=== PATIENT | female | born 1955 | race Caucasian/White ===

== ENCOUNTER → 2017-09-03 | Outpatient (CLI) | payer OTHER ==
[2017-09-04 08:32] LABS: T. vaginalis (DNA Probe) Negative (NEGATIVE)
[2017-09-04 08:33] LABS: Candida species (DNA Probe) Negative (NEGATIVE); G. vaginalis (DNA Probe) Negative (NEGATIVE)
== END ==
LOC: LAB 12:20 → LAB SHORT 12:20
PROVIDERS: Nurse Practitioner Adult Health
DX: N76.0 Acute vaginitis (principal)
CPT/HCPCS: 87480; 87510; 87660

== ENCOUNTER → 2017-09-18 | Outpatient (CLI) | payer OTHER | LOC: LAB SHORT 13:24 → LAB 13:24 | DX: N76.0 Acute vaginitis (principal) | CPT/HCPCS: 87070; 87205 ==

== ENCOUNTER 2017-09-24 15:45 | Day surgery (SDC) | payer OTHER ==
[2017-09-24] MEDS ORDERED: LOSA25 PO (16:39)
== END 2017-09-24 17:26 | disposition home or self-care (01) ==
LOC: ATC 15:45
DX: B99.9 Unspecified infectious disease (principal); Z87.891 Personal history of nicotine dependence
CPT/HCPCS: 96372; J1100

== ENCOUNTER → 2018-05-29 | Outpatient (CLI) | payer OTHER ==
[~2018-05-29] MED LIST: LOSA25 PO
[2018-05-29 17:41] LABS: BASOPHILS ABSOLUTE AUTO 0.03 K/mm3 (0.00-0.23); BASOPHILS PERCENT AUTO 1 % (0-2); EOSINOPHILS ABSOLUTE AUTO 0.02 K/mm3 (0.00-0.68); EOSINOPHILS PERCENT AUTO 0 % (0-6); Hematocrit 42.8 % (33.0-51.0); Hemoglobin 14.4 g/dL (11.5-16.0); IMMATURE GRAN ABSOLUTE AUTO 0.01 K/mm3 (0.00-0.10); IMMATURE GRAN PERCENT AUTO 0 % (0-1); LYMPHOCYTES ABSOLUTE AUTO 1.78 K/mm3 (0.84-5.20); LYMPHOCYTES PERCENT AUTO 32 % (21-46); MONOCYTES PERCENT AUTO 9 % (4-13); Mean Corpuscular HGB 36.5 pg (26.0-34.0); Mean Corpuscular HGB Conc 33.6 g/dL (31.5-36.5); Mean Corpuscular Volume 108 fL (80-100); Mean Platelet Volume 10.2 fL (9.1-12.4); NEUTROPHILS ABSOLUTE AUTO 3.22 K/mm3 (1.96-9.15); NEUTROPHILS PERCENT AUTO 58 % (41-73); Platelet Count 198 K/mm3 (150-400); RDW Coefficient Variation 11.9 % (11.7-14.2); RDW Standard Deviation 47.8 fL (35.1-46.3); Red Blood Cell Count 3.95 M/mm3 (3.80-5.20); White Blood Cell Count 5.56 K/mm3 (4.00-11.30)
[2018-05-29 18:08] LABS: CHOL/HDL RATIO 2.6; Cholesterol 252 mg/dL (50-200); HDL Cholesterol 96 mg/dL (>39); LDL/HDL RATIO 1.4; Low Density Lipoprotein Chol 133 mg/dL (0-110); Triglycerides 117 mg/dL (30-160); Very Low Density Lipoprot Chol 23 mg/dL (6-32)
== END ==
LOC: LAB SHORT 17:18 → LAB 17:18
PROVIDERS: Nurse Practitioner Family
DX: D64.9 Anemia, unspecified (principal)
CPT/HCPCS: 80061; 85025

== ENCOUNTER 2018-09-06 21:21 | Observation (INO) | payer OTHER ==
[~2018-09-06] VITALS: Ht 172.7 cm; Wt 64.6 kg
[~2018-09-06 21:21] MED LIST changes: +Zofran4 MG PO
[2018-09-06] MEDS ORDERED: Zantac150 MG PO (21:32)
[2018-09-06 21:47] LABS: BASOPHILS ABSOLUTE AUTO 0.03 K/mm3 (0.00-0.23); BASOPHILS PERCENT AUTO 0 % (0-2); EOSINOPHILS ABSOLUTE AUTO 0.01 K/mm3 (0.00-0.68); EOSINOPHILS PERCENT AUTO 0 % (0-6); Hematocrit 36.7 % (33.0-51.0); Hemoglobin 12.5 g/dL (11.5-16.0); IMMATURE GRAN ABSOLUTE AUTO 0.02 K/mm3 (0.00-0.10); IMMATURE GRAN PERCENT AUTO 0 % (0-1); LYMPHOCYTES ABSOLUTE AUTO 2.03 K/mm3 (0.84-5.20); LYMPHOCYTES PERCENT AUTO 28 % (21-46); MONOCYTES ABSOLUTE AUTO 0.54 K/mm3 (0.16-1.47); MONOCYTES PERCENT AUTO 8 % (4-13); Mean Corpuscular HGB 36.4 pg (26.0-34.0); Mean Corpuscular HGB Conc 34.1 g/dL (31.5-36.5); Mean Corpuscular Volume 107 fL (80-100); Mean Platelet Volume 10.2 fL (9.1-12.4); NEUTROPHILS ABSOLUTE AUTO 4.56 K/mm3 (1.96-9.15); NEUTROPHILS PERCENT AUTO 64 % (41-73); Platelet Count 152 K/mm3 (150-400); RDW Coefficient Variation 15.1 % (11.7-14.2); RDW Standard Deviation 59.2 fL (35.1-46.3); Red Blood Cell Count 3.43 M/mm3 (3.80-5.20); White Blood Cell Count 7.19 K/mm3 (4.00-11.30)
[2018-09-06 21:59] LABS: Alanine Aminotransfer (ALT/SGP 93 U/L (12-78); Albumin, Blood 3.3 g/dL (3.4-5.0); Alk Phos 297 U/L (50-136); Anion Gap 15 mmol/L (6-16); Aspartate Aminotrans (AST/SGOT 215 U/L (12-37); Bilirubin, Total 1.6 mg/dL (0.1-1.0); Blood Urea Nitrogen 5 mg/dL (8-24); Bun/Creatinine Ratio 11.8 (12.0-20.0); CO2, Blood 28 mmol/L (21-32); Calcium, Blood 8.6 mg/dL (8.5-10.1); Chloride, Blood 93 mmol/L (98-108); Creatinine, Blood 0.42 mg/dL (0.40-1.00); Globulin, Blood 3.3 g/dL (2.2-4.0); Glomerular Filtration Rate >60 (60-); Glucose, Blood 118 mg/dL (70-99); Potassium, Blood 3.3 mmol/L (3.5-5.5); Sodium, Blood 136 mmol/L (136-145); Total Protein, Blood 6.6 g/dL (6.4-8.2)
[2018-09-06 23:14] LABS: International Normalized Ratio 1.22; Prothrombin Time Results 12.7 Sec (9.7-11.5)
--- NOTE | 2018-09-07 05:26 | NUR ---
SHIFT SUMMARY RECEIVED REPORT FROM ED RN. ARRIVED VIA STRETCHER; TRANSFER ASSISTANCE PROVIDED BY BEHAVIORAL HEALTH CARE COORDINATOR. PATIENT RESPONDING TO VERBAL CUES ABLE TO TELL THIS RN WHERE SHE WAS, THE DATE, WHO THE PRESIDENT IS; BEYOND THAT, VERY TIRED; OPENED EYES MINIMALLY. NO EMESIS SINCE ARRIVAL TO UNIT. RUNNING IV FLUIDS WITH POTASSIUM CURRENTLY. APPEARS TO BE RESTING COMFORTABLY. WILL NOT AWAKE FULLY ENOUGH TO ANSWER INTAKE QUESTIONS. UPON ASSESSMENT LS CTA WITH EQUAL RISE/FALL. BT X4, HYPOACTIVE, AND NON-TENDER TO PALPATION. STATED NOT NAUSEATED. VSS/AFEBRILE. NO ACUTE CHANGES SINCE ARRIVAL. WCTM. BED IN LOWEST POSITION. ALARM ON. CALL LIGHT IN REACH. REPORT TO ONCOMING RN.
[2018-09-07 05:44] LABS: BASOPHILS ABSOLUTE AUTO 0.03 K/mm3 (0.00-0.23); BASOPHILS PERCENT AUTO 1 % (0-2); EOSINOPHILS ABSOLUTE AUTO 0.01 K/mm3 (0.00-0.68); EOSINOPHILS PERCENT AUTO 0 % (0-6); Hematocrit 30.7 % (33.0-51.0); Hemoglobin 10.3 g/dL (11.5-16.0); IMMATURE GRAN ABSOLUTE AUTO 0.02 K/mm3 (0.00-0.10); IMMATURE GRAN PERCENT AUTO 0 % (0-1); LYMPHOCYTES ABSOLUTE AUTO 1.67 K/mm3 (0.84-5.20); LYMPHOCYTES PERCENT AUTO 28 % (21-46); MONOCYTES ABSOLUTE AUTO 0.49 K/mm3 (0.16-1.47); MONOCYTES PERCENT AUTO 8 % (4-13); Mean Corpuscular HGB 37.1 pg (26.0-34.0); Mean Corpuscular HGB Conc 33.6 g/dL (31.5-36.5); Mean Corpuscular Volume 110 fL (80-100); Mean Platelet Volume 10.4 fL (9.1-12.4); NEUTROPHILS ABSOLUTE AUTO 3.79 K/mm3 (1.96-9.15); NEUTROPHILS PERCENT AUTO 63 % (41-73); NRBC ABSOLUTE 0.02 K/mm3 (0.00-0.02); NRBC Auto 0.3 /100 WBC (0.0-0.2); Platelet Count 116 K/mm3 (150-400); RDW Coefficient Variation 15.1 % (11.7-14.2); RDW Standard Deviation 62.4 fL (35.1-46.3); Red Blood Cell Count 2.78 M/mm3 (3.80-5.20); White Blood Cell Count 6.01 K/mm3 (4.00-11.30)
[2018-09-07 05:57] LABS: Anion Gap 10 mmol/L (6-16); Blood Urea Nitrogen 7 mg/dL (8-24); Bun/Creatinine Ratio 17.3 (12.0-20.0); CO2, Blood 32 mmol/L (21-32); Calcium, Blood 7.8 mg/dL (8.5-10.1); Chloride, Blood 98 mmol/L (98-108); Creatinine, Blood 0.41 mg/dL (0.40-1.00); Glomerular Filtration Rate >60 (60-); Glucose, Blood 92 mg/dL (70-99); Potassium, Blood 3.4 mmol/L (3.5-5.5); Sodium, Blood 140 mmol/L (136-145)
[2018-09-07 13:12] LABS: Hematocrit 30.8 % (33.0-51.0); Hemoglobin 10.4 g/dL (11.5-16.0)
[2018-09-07 13:29] LABS: Amylase, Blood 19 U/L (25-115)
--- NOTE | 2018-09-07 17:25 | NUR ---
PT IS ALERT AND ORIENTED AND COOPERATIVE WITH CARE. SHE COMPLAINED OF MILD DISCOMFORT IN HER UPPER ABDOMEN THIS MORNING. SHE USED THE BSC WITH ASSISTANCE. HER WAS AT THE BEDSIDE FOR MOST OF THE DAY. DR. RAE RESCHEDULED THE EGD FOR TOMORROW MORNING AROUND 8-10AM. PT IS ON A CLEAR LIQUID DIET NOW AND WILL BE NPO AFTER MIDNIGHT. WILL CONTINUE TO MONITOR
[2018-09-08 04:29] LABS: Hematocrit 29.5 % (33.0-51.0); Hemoglobin 9.7 g/dL (11.5-16.0); Mean Corpuscular HGB 37.5 pg (26.0-34.0); Mean Corpuscular HGB Conc 32.9 g/dL (31.5-36.5); Mean Platelet Volume 10.2 fL (9.1-12.4); Platelet Count 87 K/mm3 (150-400); RDW Coefficient Variation 14.9 % (11.7-14.2); RDW Standard Deviation 62.7 fL (35.1-46.3); Red Blood Cell Count 2.59 M/mm3 (3.80-5.20); White Blood Cell Count 3.89 K/mm3 (4.00-11.30)
[2018-09-08 04:32] LABS: Mean Corpuscular Volume 114 fL (80-100)
[2018-09-08 04:46] LABS: Albumin, Blood 2.5 g/dL (3.4-5.0); Anion Gap 7 mmol/L (6-16); Blood Urea Nitrogen 10 mg/dL (8-24); CO2, Blood 27 mmol/L (21-32); Calcium, Blood 7.8 mg/dL (8.5-10.1); Chloride, Blood 107 mmol/L (98-108); Creatinine, Blood 0.45 mg/dL (0.40-1.00); Glomerular Filtration Rate >60 (60-); Glucose, Blood 74 mg/dL (70-99); Phosphorus, Blood 2.7 mg/dL (2.5-4.9); Sodium, Blood 141 mmol/L (136-145)
--- NOTE | 2018-09-08 07:33 | NUR ---
NOC SHIFT SUMMARY PT HAS BEEN PLEASANT AND COOPERATIVE WITH CARE THIS NIGHT. PT'S DAUGHTER CALLED AT 2129 AND WITH PT'S PERMISSION I SPOKE WITH HER. SLEPT MOST OF NIGHT CIWA'S HAVE BEEN 0 THROUGH THE NIGHT WITH EXCEPTION OF SOME NAUSEA AND DRY HEAVES SHE HAD EARLY IN THE MORNING. THIS RESOLVED WITH ZOFRAN. NEXT CIWA WAS 0 AGAIN. PT HAS HAD NO OTHER COMPLAINTS OR REQUESTS THIS NIGHT. APPEARS IN NO ACUTE DISTRESS. VSS. REPORT TO ONCOMING RN.
[2018-09-08 09:15] LABS: Albumin, Blood 2.6 g/dL (3.4-5.0); Bilirubin, Direct 1.2 mg/dL (0.0-0.3); Bilirubin, Indirect 1.2 mg/dL (0.1-0.7); Bilirubin, Total 2.4 mg/dL (0.1-1.0); Globulin, Blood 2.7 g/dL (2.2-4.0); Total Protein, Blood 5.3 g/dL (6.4-8.2)
[2018-09-08 10:05] LABS: HBSAG SCREEN Negative (Negative); HEP A AB, IGM Negative (Negative); HEP B CORE AB, IGM Negative (Negative); HEP C VIRUS AB <0.1 (0.0-0.9)
--- NOTE | 2018-09-08 15:22 | NUR ---
09/08/18 1522 Latoya Rae [facility] [place] CASE WT DR. SIFUENTES
[2018-09-08] MEDS ORDERED: GAVILAX17 GM PO (16:08)
[2018-09-08] MEDS ORDERED: ACET325 PO (16:08)
[2018-09-08] MEDS ORDERED: B-1100 MG PO (16:09)
[2018-09-08] MEDS ORDERED: THERA TABLET400 MCG PO (16:10)
[2018-09-08] MEDS ORDERED: ONDA4ODT PO (16:10)
[2018-09-08] MEDS ORDERED: PANT20 PO (16:18)
--- NOTE | 2018-09-08 17:12 | NUR ---
DISCHARGE SUMMARY ALL INFORMATION TALKED OVER WITH THE PATIENT. NO ACUTE CONCERNS. PATIENT INFORMATION GIVEN TO THE PATIENT AND HER SPOUSE. NEW MEDS EXPLAINED TO THE PATIENT AND SPOUSE.
== END 2018-09-08 16:40 | disposition home or self-care (01) ==
LOC: ER 21:21 → MEDS 21:22
PROVIDERS: Emergency Medicine; Internal Medicine; Student in an Organized Health Care Education/Training Program; ADMIT Hospitalist
PROC: 0DJ08ZZ Inspection of Upper Intestinal Tract, Via Natural or Artificial Opening Endoscopic (ICD-10-PCS; principal; 2018-09-08 12:15)
DX: K20.9 Esophagitis, unspecified (principal); K92.0 Hematemesis; K44.9 Diaphragmatic hernia without obstruction or gangrene; D61.818 Other pancytopenia; F10.10 Alcohol abuse, uncomplicated; R79.89 Other specified abnormal findings of blood chemistry; R74.0 Nonspecific elevation of levels of transaminase and lactic acid dehydrogenase [LDH]; M54.5 Low back pain; G89.29 Other chronic pain; I10 Essential (primary) hypertension; E87.6 Hypokalemia; Z88.0 Allergy status to penicillin; Z79.899 Other long term (current) drug therapy
CPT/HCPCS: 36415; 71046; 76705; 80048; 80053; 80069; 80074; 80076; 82140; 82150; 82248; 82271; 82272; 83690; 83735; 85014; 85018; 85025; 85027; 85610; 85730; 86850; 86900; 86901; 93005; 93010; 96361; 96365; 96366; 96375; 96376; 99285-25; C9113; G0378; G0480; J2060; J2354; J2405; J2704; J3480; J7030; J7120

== ENCOUNTER 2019-09-02 09:02 | Emergency (ER) | payer OTHER, SELFPAY ==
[~2019-09-02] VITALS: Ht 172.7 cm; Wt 65.8 kg
[~2019-09-02 09:02] MED LIST changes: +ACET325 PO; +B-1100 MG PO; +GAVILAX17 GM PO; +ONDA4ODT PO; +PANT20 PO; +THERA TABLET400 MCG PO; +Zantac150 MG PO
[2019-09-02 10:49] LABS: BASOPHILS ABSOLUTE AUTO 0.06 K/mm3 (0.00-0.23); BASOPHILS PERCENT AUTO 1 % (0-2); EOSINOPHILS ABSOLUTE AUTO 0.03 K/mm3 (0.00-0.68); EOSINOPHILS PERCENT AUTO 0 % (0-6); Hematocrit 47.3 % (33.0-51.0); Hemoglobin 15.3 g/dL (11.5-16.0); IMMATURE GRAN ABSOLUTE AUTO 0.01 K/mm3 (0.00-0.10); IMMATURE GRAN PERCENT AUTO 0 % (0-1); LYMPHOCYTES ABSOLUTE AUTO 2.81 K/mm3 (0.84-5.20); LYMPHOCYTES PERCENT AUTO 37 % (21-46); MONOCYTES ABSOLUTE AUTO 0.43 K/mm3 (0.16-1.47); MONOCYTES PERCENT AUTO 6 % (4-13); Mean Corpuscular HGB 35.3 pg (26.0-34.0); Mean Corpuscular HGB Conc 32.3 g/dL (31.5-36.5); Mean Corpuscular Volume 109 fL (80-100); Mean Platelet Volume 9.6 fL (9.1-12.4); NEUTROPHILS ABSOLUTE AUTO 4.22 K/mm3 (1.96-9.15); NEUTROPHILS PERCENT AUTO 56 % (41-73); Platelet Count 245 K/mm3 (150-400); RDW Coefficient Variation 13.2 % (11.7-14.2); RDW Standard Deviation 54.1 fL (35.1-46.3); Red Blood Cell Count 4.34 M/mm3 (3.80-5.20); White Blood Cell Count 7.56 K/mm3 (4.00-11.30)
[2019-09-02 11:18] LABS: Alanine Aminotransfer (ALT/SGP 119 U/L (12-78); Albumin, Blood 4.5 g/dL (3.4-5.0); Albumin/Globulin Ratio 1.4 (0.8-1.8); Alk Phos 147 U/L (50-136); Anion Gap 5 mmol/L (6-16); Aspartate Aminotrans (AST/SGOT 181 U/L (12-37); Bilirubin, Total 0.4 mg/dL (0.1-1.0); Blood Urea Nitrogen 7 mg/dL (8-24); Bun/Creatinine Ratio 14.8 (12.0-20.0); CO2, Blood 30 mmol/L (21-32); Calcium, Blood 8.8 mg/dL (8.5-10.1); Chloride, Blood 107 mmol/L (98-108); Creatinine, Blood 0.47 mg/dL (0.40-1.00); Globulin, Blood 3.2 g/dL (2.2-4.0); Glomerular Filtration Rate >60 (60-); Glucose, Blood 98 mg/dL (70-99); Potassium, Blood 3.8 mmol/L (3.5-5.5); Sodium, Blood 142 mmol/L (136-145); Total Protein, Blood 7.7 g/dL (6.4-8.2)
[2019-09-02] MEDS ORDERED: Percocet 5-3251 EACH PO (11:23)
== END 2019-09-02 11:50 | disposition home or self-care (01) ==
LOC: ER 09:02
PROVIDERS: Physician Assistant
DX: S22.20XA Unspecified fracture of sternum, initial encounter for closed fracture (principal); I10 Essential (primary) hypertension; M54.9 Dorsalgia, unspecified; G89.29 Other chronic pain; Z88.0 Allergy status to penicillin; Z79.899 Other long term (current) drug therapy; W01.0XXA Fall on same level from slipping, tripping and stumbling without subsequent striking against object, initial encounter
CPT/HCPCS: 36415; 71046; 71250; 80053; 85025; 99284-25

== ENCOUNTER 2019-11-20 22:09 | Emergency (ER) | payer OTHER ==
[~2019-11-20] VITALS: Ht 172.7 cm; Wt 63.5 kg
[~2019-11-20 22:09] MED LIST changes: +Percocet 5-3251 EACH PO
== END 2019-11-21 04:03 | disposition home or self-care (01) ==
LOC: ER 22:09
DX: S09.90XA Unspecified injury of head, initial encounter (principal); F10.129 Alcohol abuse with intoxication, unspecified; I10 Essential (primary) hypertension; Z88.0 Allergy status to penicillin; Z79.899 Other long term (current) drug therapy; W19.XXXA Unspecified fall, initial encounter
CPT/HCPCS: 70450; 72125; 96374; 96375; 99284-25; J2060; J2405

== ENCOUNTER 2022-05-15 09:14 | Observation (INO) | payer MEDICARE ==
[~2022-05-15] VITALS: Ht 172.7 cm; Wt 73.0 kg
[2022-05-15 10:07] LABS: BASOPHILS ABSOLUTE AUTO 0.05 K/mm3 (0.00-0.23); BASOPHILS PERCENT AUTO 1 % (0-2); EOSINOPHILS ABSOLUTE AUTO 0.05 K/mm3 (0.00-0.68); EOSINOPHILS PERCENT AUTO 1 % (0-6); Hematocrit 32.3 % (33.0-51.0); Hemoglobin 11.4 g/dL (11.5-16.0); IMMATURE GRAN ABSOLUTE AUTO 0.03 K/mm3 (0.00-0.10); IMMATURE GRAN PERCENT AUTO 1 % (0-1); LYMPHOCYTES ABSOLUTE AUTO 1.43 K/mm3 (0.84-5.20); LYMPHOCYTES PERCENT AUTO 25 % (21-46); MONOCYTES ABSOLUTE AUTO 0.27 K/mm3 (0.16-1.47); MONOCYTES PERCENT AUTO 5 % (4-13); Mean Corpuscular HGB 36.5 pg (26.0-34.0); Mean Corpuscular HGB Conc 35.3 g/dL (31.5-36.5); Mean Corpuscular Volume 104 fL (80-100); Mean Platelet Volume 10.6 fL (9.1-12.4); NEUTROPHILS ABSOLUTE AUTO 3.89 K/mm3 (1.96-9.15); NEUTROPHILS PERCENT AUTO 68 % (41-73); RDW Coefficient Variation 14.9 % (11.7-14.2); RDW Standard Deviation 56.2 fL (35.1-46.3); Red Blood Cell Count 3.12 M/mm3 (3.80-5.20); White Blood Cell Count 5.72 K/mm3 (4.00-11.30)
[2022-05-15 10:19] LABS: International Normalized Ratio 2.14; Prothrombin Time Results 21.4 Sec (9.7-11.5)
[2022-05-15 10:25] LABS: Albumin, Blood 2.7 g/dL (3.4-5.0); Albumin/Globulin Ratio 0.7 (0.8-1.8); Bilirubin, Total 4.7 mg/dL (0.1-1.0); Bun/Creatinine Ratio 20.6 (12.0-20.0); Calcium, Blood 8.3 mg/dL (8.5-10.1); Creatinine, Blood 0.49 mg/dL (0.40-1.00); Globulin, Blood 3.9 g/dL (2.2-4.0); Magnesium, Blood 1.8 mg/dL (1.6-2.4); Potassium, Blood 3.5 mmol/L (3.5-5.5); Total Protein, Blood 6.6 g/dL (6.4-8.2)
[2022-05-15 10:29] LABS: Platelet Count 38 K/mm3 (150-400)
[2022-05-15 11:25] LABS: Influenza A, PCR NEGATIVE (NEGATIVE); Influenza B, PCR NEGATIVE (NEGATIVE); Resp Syncytial Virus, PCR NEGATIVE (NEGATIVE); SARS-Cov-2 (COVID-19) PCR, MMC NEGATIVE (NEGATIVE)
[2022-05-15 21:13] LABS: Hematocrit 29.5 % (33.0-51.0); Hemoglobin 9.7 g/dL (11.5-16.0)
--- NOTE | 2022-05-16 04:57 | NUR ---
SHIFT SUMMARY PT IS A&OX4, HAS BEEN SR 80'S-90'S ON TELE, SP02 >90% ON ROOM AIR. SHE HAS NOT HAD ANY N/V/D THIS SHIFT BUT HER URINE IS A DARK ORANGE/RED COLOR. PT HAS LR, PROTONIX, AND OCREOTIDE INFUSING AT CONTINUOUS RATES. SHE CALLS APPROPRIATELY AND IS COOPERATIVE WITH CARE. BED IS IN LOW AND CALL LIGHT IS IN REACH. WILL CONTINUE TO MONITOR UNTIL SHIFT REPORT IS GIVEN TO THE ONCOMING SHIFT RN. SEE NOTES FOR ANY UPDATES.
[2022-05-16 05:27] LABS: Hematocrit 26.5 % (33.0-51.0); Hemoglobin 9.2 g/dL (11.5-16.0); Mean Corpuscular HGB 36.4 pg (26.0-34.0); Mean Corpuscular HGB Conc 34.7 g/dL (31.5-36.5); Mean Corpuscular Volume 105 fL (80-100); Mean Platelet Volume 12.1 fL (9.1-12.4); RDW Standard Deviation 58.1 fL (35.1-46.3); Red Blood Cell Count 2.53 M/mm3 (3.80-5.20); White Blood Cell Count 6.23 K/mm3 (4.00-11.30)
[2022-05-16 05:39] LABS: Platelet Count 24 K/mm3 (150-400)
[2022-05-16 05:55] LABS: Albumin, Blood 2.2 g/dL (3.4-5.0); Albumin/Globulin Ratio 0.7 (0.8-1.8); Bilirubin, Total 4.5 mg/dL (0.1-1.0); Bun/Creatinine Ratio 22.3 (12.0-20.0); Calcium, Blood 7.7 mg/dL (8.5-10.1); Creatinine, Blood 0.49 mg/dL (0.40-1.00); Globulin, Blood 3.1 g/dL (2.2-4.0); Potassium, Blood 4.1 mmol/L (3.5-5.5); Total Protein, Blood 5.3 g/dL (6.4-8.2)
[2022-05-16 06:22] LABS: BASOPHILS ABSOLUTE MAN 0.06 K/mm3 (0.00-0.23); BASOPHILS PERCENT MAN 1 % (0-2); EOSINOPHILS PERCENT MAN 0 % (0-6); LYMPHOCYTES ABSOLUTE MAN 1.93 K/mm3 (0.84-5.20); LYMPHOCYTES PERCENT MAN 31 % (21-46); MONOCYTES ABSOLUTE MAN 0.18 K/mm3 (0.16-1.47); MONOCYTES PERCENT MAN 3 % (4-13); NEUTROPHILS ABSOLUTE MAN 4.04 K/mm3 (1.96-9.15); SEG NEUTROPHILS PERCENT MAN 65 % (41-73); TOTAL CELLS COUNTED 100
[2022-05-16 08:49] LABS: BASOPHILS ABSOLUTE AUTO 0.06 K/mm3 (0.00-0.23); BASOPHILS PERCENT AUTO 1 % (0-2); EOSINOPHILS ABSOLUTE AUTO 0.13 K/mm3 (0.00-0.68); EOSINOPHILS PERCENT AUTO 2 % (0-6); Hematocrit 27.7 % (33.0-51.0); Hemoglobin 9.7 g/dL (11.5-16.0); IMMATURE GRAN ABSOLUTE AUTO 0.02 K/mm3 (0.00-0.10); IMMATURE GRAN PERCENT AUTO 0 % (0-1); LYMPHOCYTES ABSOLUTE AUTO 1.68 K/mm3 (0.84-5.20); LYMPHOCYTES PERCENT AUTO 28 % (21-46); MONOCYTES ABSOLUTE AUTO 0.38 K/mm3 (0.16-1.47); MONOCYTES PERCENT AUTO 6 % (4-13); Mean Corpuscular HGB 37.2 pg (26.0-34.0); Mean Corpuscular Volume 106 fL (80-100); Mean Platelet Volume 11.4 fL (9.1-12.4); NEUTROPHILS ABSOLUTE AUTO 3.84 K/mm3 (1.96-9.15); NEUTROPHILS PERCENT AUTO 63 % (41-73); RDW Coefficient Variation 15.2 % (11.7-14.2); RDW Standard Deviation 59.6 fL (35.1-46.3); Red Blood Cell Count 2.61 M/mm3 (3.80-5.20); White Blood Cell Count 6.11 K/mm3 (4.00-11.30)
[2022-05-16 09:12] LABS: Platelet Count 23 K/mm3 (150-400)
--- NOTE | 2022-05-16 11:19 | NUR ---
PT WAS DISCHARGED AGAINST MEDICAL ADVICE PT SIGNED AMA FORM. EXPLAINED RISKS TO BOTH AND PATIENT BY DR DAVIDSON, TO TAKE PT UP [place] WHERE THERE IS GI PROVIDER AVAILABLE. PT WAS GIVEN VITAMIN K DOSE PRIOR TO DISCHARGE, WAS ABLE TO TRANSFER SAFELY TO WHEELCHAIR AND VEHICLE, ALL BELONGINGS SENT WITH THE PT.
== END 2022-05-16 11:01 | disposition left against medical advice (07) ==
LOC: ER 09:14 → ERHOLD 09:15 → PCU 17:23
PROVIDERS: Emergency Medicine; Family Medicine; ADMIT Internal Medicine
DX: K92.1 Melena (principal); K92.0 Hematemesis; D69.6 Thrombocytopenia, unspecified; D68.9 Coagulation defect, unspecified; F10.20 Alcohol dependence, uncomplicated; K70.30 Alcoholic cirrhosis of liver without ascites; Z53.29 Procedure and treatment not carried out because of patient's decision for other reasons; Z88.0 Allergy status to penicillin; Z20.822 Contact with and (suspected) exposure to COVID-19; K70.10 Alcoholic hepatitis without ascites; S00.83XA Contusion of other part of head, initial encounter; X58.XXXA Exposure to other specified factors, initial encounter
CPT/HCPCS: 0241U; 36415; 71045; 76705; 80053; 83690; 83735; 84484; 85014; 85018; 85025; 85610; 86850; 86900; 86901; 93005; 93010; 96365; 96366; 96368; 96372-59; 96375; 96376; 99285-25; A9270; C9113; G0378; J0696; J2354; J2405; J3411; J3430; J7050; J7120

== ENCOUNTER 2022-06-21 10:10 | Inpatient (IN) | payer MEDICARE ==
[~2022-06-21] VITALS: Ht 172.7 cm; Wt 71.8 kg
[2022-06-21 11:09] LABS: BASOPHILS ABSOLUTE AUTO 0.03 K/mm3 (0.00-0.23); BASOPHILS PERCENT AUTO 0 % (0-2); EOSINOPHILS ABSOLUTE AUTO 0.06 K/mm3 (0.00-0.68); EOSINOPHILS PERCENT AUTO 1 % (0-6); Hematocrit 27.4 % (33.0-51.0); Hemoglobin 9.6 g/dL (11.5-16.0); IMMATURE GRAN ABSOLUTE AUTO 0.05 K/mm3 (0.00-0.10); IMMATURE GRAN PERCENT AUTO 0 % (0-1); LYMPHOCYTES PERCENT AUTO 10 % (21-46); MONOCYTES ABSOLUTE AUTO 1.14 K/mm3 (0.16-1.47); MONOCYTES PERCENT AUTO 9 % (4-13); Mean Corpuscular HGB 39.3 pg (26.0-34.0); Mean Corpuscular Volume 112 fL (80-100); NEUTROPHILS ABSOLUTE AUTO 10.01 K/mm3 (1.96-9.15); NEUTROPHILS PERCENT AUTO 80 % (41-73); Platelet Count 84 K/mm3 (150-400); RDW Coefficient Variation 17.9 % (11.7-14.2); RDW Standard Deviation 71.9 fL (35.1-46.3); Red Blood Cell Count 2.44 M/mm3 (3.80-5.20); White Blood Cell Count 12.59 K/mm3 (4.00-11.30)
[2022-06-21 11:24] LABS: Anion Gap 14 mmol/L (6-16); Blood Urea Nitrogen 53 mg/dL (8-24); Bun/Creatinine Ratio 15.5 (12.0-20.0); CO2, Blood 20 mmol/L (21-32); Calcium, Blood 8.6 mg/dL (8.5-10.1); Chloride, Blood 103 mmol/L (98-108); Creatinine, Blood 3.43 mg/dL (0.40-1.00); Ethanol (Alcohol), Blood, Med <3 mg/dL; Glomerular Filtration Rate 14 (60-); Glucose, Blood 103 mg/dL (70-99); Potassium, Blood 3.5 mmol/L (3.5-5.5); Sodium, Blood 137 mmol/L (136-145)
[2022-06-21 11:32] LABS: Albumin, Blood 1.9 g/dL (3.4-5.0); Albumin/Globulin Ratio 0.5 (0.8-1.8); Bilirubin, Direct 4.2 mg/dL (0.0-0.3); Bilirubin, Indirect 2.2 mg/dL (0.1-0.7); Bilirubin, Total 6.4 mg/dL (0.1-1.0); Globulin, Blood 3.9 g/dL (2.2-4.0); Total Protein, Blood 5.8 g/dL (6.4-8.2)
[2022-06-21 11:42] LABS: Base Excess Venous -5.8 mmol/L; Bicarbonate Venous 20.1 mmol/L (24.0-30.0); PCO2 Venous 33.7 mmHg (38-42); pH Blood Venous 7.37 (7.34-7.37)
[2022-06-21 16:10] LABS: International Normalized Ratio 3.11; Prothrombin Time Results 30.3 Sec (9.7-11.5)
[2022-06-21 17:43] LABS: Source, Urine Foley catheter
[2022-06-21 17:46] LABS: Appearance, Urine Clear (Clear); Blood, Urine Neg (Neg); Color, Urine Amber (P-Yellow); Glucose Qualitative, Urine Neg (Neg); Ketones, Urine 1+ (Neg); Leukocyte Esterase, Urine 1+ (Neg); Nitrite, Urine Neg (Neg); Protein, Urine 1+ (Neg); Urobilinogen, Urine 1+ (Normal)
[2022-06-21 17:53] LABS: Bilirubin, Urine 1+ (Neg)
[2022-06-21 17:54] LABS: Bacteria Many /hpf; Red Blood Cells, Urine 0-2 /hpf (0-2); Squamous Epithelial Cells Few /hpf (Few)
[2022-06-21 17:55] LABS: Transitional Epithelial Cells Rare /hpf (0-Rare)
--- NOTE | 2022-06-21 18:55 | NUR ---
ADMIT NOTE RECEIVED REPORT FROM RACQUEL GALE IN ED. PT TO ROOM AT [facility]PPXO 1700, TRANSFERED TO BED WITH 4 PERSON ASSIST WITH SLIDER SHEET. PT ALERT, LOOKING AROUND ROOM AND TRACKS WITH EYE, PT NOT ANSWER QUESTIONS AND NOT FOLLOWING COMMAND, UNABLE TO ASSESS. PUPILS EQUAL AND REACTIVE, SCLERA YELLOW. PT MOANING/MUMBLING. PT MOVING UPPER EXTREMITIES, DOES NOTE APPEAR TO BE FAVORING ONE SIDE. PT BLE STIFF. SPO2>90% ON RA, BREATHING EVEN AND UNLABORED, FINE CRACKLE NOTED TO RIGHT SIDE. TELE SINUS, BP SOFT AT TIMES. DEPENDANT EDEMA NOTED TO UPPER LEGS UP TO UPPER BACK AND ARMS, BLE ANKLES 1+ PUTTING. ABD SEVERE DISTENDED, FIRM, TENDER, HYPOACTIVE BT, PLANS FOR LACTULOSE ENEMA. FRANK CATHETER PLACE, UA SENT. OTHER VSS. NO OTHER ACUTE CHANGES NOTED. WILL CONTINUE TO MONITOR.
[2022-06-22 03:56] LABS: Albumin, Blood 1.8 g/dL (3.4-5.0); Albumin/Globulin Ratio 0.5 (0.8-1.8); Bilirubin, Total 5.8 mg/dL (0.1-1.0); Bun/Creatinine Ratio 15.3 (12.0-20.0); Calcium, Blood 8.3 mg/dL (8.5-10.1); Creatinine, Blood 3.72 mg/dL (0.40-1.00); Globulin, Blood 3.4 g/dL (2.2-4.0); Potassium, Blood 3.6 mmol/L (3.5-5.5); Total Protein, Blood 5.2 g/dL (6.4-8.2)
[2022-06-22 04:01] LABS: BASOPHILS ABSOLUTE AUTO 0.03 K/mm3 (0.00-0.23); BASOPHILS PERCENT AUTO 0 % (0-2); EOSINOPHILS PERCENT AUTO 1 % (0-6); Hematocrit 22.8 % (33.0-51.0); Hemoglobin 8.3 g/dL (11.5-16.0); IMMATURE GRAN ABSOLUTE AUTO 0.06 K/mm3 (0.00-0.10); IMMATURE GRAN PERCENT AUTO 0 % (0-1); LYMPHOCYTES ABSOLUTE AUTO 1.83 K/mm3 (0.84-5.20); LYMPHOCYTES PERCENT AUTO 12 % (21-46); MONOCYTES ABSOLUTE AUTO 1.16 K/mm3 (0.16-1.47); MONOCYTES PERCENT AUTO 8 % (4-13); Mean Corpuscular HGB 38.4 pg (26.0-34.0); Mean Corpuscular HGB Conc 36.4 g/dL (31.5-36.5); Mean Platelet Volume 10.9 fL (9.1-12.4); NEUTROPHILS ABSOLUTE AUTO 11.53 K/mm3 (1.96-9.15); NEUTROPHILS PERCENT AUTO 78 % (41-73); Platelet Count 95 K/mm3 (150-400); RDW Coefficient Variation 17.6 % (11.7-14.2); RDW Standard Deviation 66.8 fL (35.1-46.3); Red Blood Cell Count 2.16 M/mm3 (3.80-5.20); White Blood Cell Count 14.71 K/mm3 (4.00-11.30)
[2022-06-22 04:04] LABS: Mean Corpuscular Volume 106 fL (80-100)
--- NOTE | 2022-06-22 06:07 | NUR ---
SHIFT SUMMERY NO ACUTE CHANGES OVERNIGHT. PT IS STILL NONVERBAL. VSS AT THIS TIME. PT CONTINUES ON ROOM AIR. FRANK CATHETER AND RECTAL TUBE IN PLACE. LACTULOSE ENEMAS GIVEN ORDERED. PT HAS BEEN AFEBRILE. SHE DOES NOT FOLLOW COMMANDS AT THIS TIME. HER EYES ARE OPEN AND SHE WILL TRACK YOU TO SOME EXTENT. SHE IS ABLE TO MOVE ALL OF HER EXTREMITIES. HER SKIN REMAINS JAUNDICE AND MOTTLED W/EDEMA PRESENT WELL.
--- NOTE | 2022-06-22 06:50 | NUR ---
PT TO CT
--- NOTE | 2022-06-22 11:30 | NUR ---
Joint visit made to pt/ with pt's and bedside RN. Dr reviewed pt's current status with , discussed advanced care planning, goals of care, prognosis and plan of care. feels pt should be DNR and that order was entered. He is hopeful for improvement in her renal, liver and neuro function over the next 1-2 days. If pt does not improve, he is in favor of transitioning pt to comfort care. Pt's children are arriving from [place] today and he will update them. Pt is currently demonstrating nonverbal indicators of pain and distress, anxiety. This was addressed also.
--- NOTE | 2022-06-22 17:04 | NUR ---
VO DR DAVIDSON TO PLACE PT ON CC. ORDERS PLACED.
--- NOTE | 2022-06-22 18:05 | NUR ---
"Spiritual Care Visit | Nurse Request - Comfort Care Pt. is comfort care and mostly non-verbal. Pts. Son, Daughter, and Grandson are present. Facilitated a life review with the family. Scripture is read, and prayer given on behalf of the Pt. and family. EOL decision education is given to the son. Family verbalize that Pts. spouse will be able to make decisions and should be contacted if he is not present. Two family phone numbers are on the Pts. white board, should the Pt. pass without family present. Family verbalized gratitude for the spiritual care visit."
--- NOTE | 2022-06-22 18:34 | NUR ---
COMFORT CARE / END OF SHIFT NOTE PT LETHARGIC, OPENING EYES AT TIMES, ABLE TO TRACK, BUT OTHERWISE UNABLE TO FOLLOW COMMANDS OR VERBALLY COMMUNICATE. PT MOANS/GROANS ONLY. ABD SEVERELY DISTENDED, TENDER W/ PALPATION. RECTAL TUBE IN PLACE. LACTULOSE ENEMA GIVEN W/ NO STOOL OUTPUT. FRANK CATH W/ APPROX 30 MLS DARK TEA COLOR URINE THIS SHIFT. THIS AFTERNOON, PT BECOMING MORE RESTLESS. EYES NOTED TO BE ROLLING BACK AT TIMES. AUDIBLE WHEEZE WORSENING & SPO2 DECREASE TO 87% ON RA. FAMILY AT BEDSIDE & MD DAVIDSON TO PT BEDSIDE. PLAN OF CARE DISCUSSED & FAMILY OPTING FOR TRANSITION TO PT TRANSITION TO COMFORT CARE THIS SHIFT. PT MEDICATED W/ PRN IV FENTANYL W/ BRIEF IMPROVEMENT. PT SOB & RESTLESS, MEDICATED W/ PRN ROXANOL, PT THEN INCREASINLY RESTLESS, SWINGING ARMS, BUT THEN RESTFUL, NOW SLEEPING IN RM.
--- NOTE | 2022-06-22 19:44 | NUR ---
ASSUMPTION OF CARE/ASSESSMENT ASSUMED CARE OF PT. REPORT RECEIVED FROM RACQUEL LANG. PT WAS CHANGED TO COMFORT CARE THIS AFTERNOON. UPON INITIAL ASSESSMENT PT IS RESTLESS AND MOANING. WHEEZING ALSO NOTED. PT MEDICATED WITH 10MG ROXANOL PER EMAR. PT REPOSITIONED TO LEFT SIDE. PT HAD OXYGEN PULLED OFF. ATTEMPTED TO REPLACE BUT PT BECAME VERY AGITATED SO OXYGEN NC REMOVED FOR PT COMFORT. PT FRANK REMAINS IN PLACE, NO DRAINAGE AT THIS TIME. PT WITH POWERGLIDE TO R UPPER ARM AND PERIPHERAL IV TO R HAND. BOTH IV'S PATENT. ATTEMPTED TO PROVIDE ORAL CARE, BUT PT WOULD NOT OPEN MOUTH AND BECAME VERY AGITATED, SO DISCONTIUED ATTEMPT AND WILL TRY AGAIN LATER. LIGHTS DIMMED TO DECREASE STIMULI AND TV TURNED ON SOFTLY FOR BACKGROUND NOISE/DISTRACTION SINCE ALL VISITORS HAVE LEFT. NO OTHER ISSUES NOTED AT THIS TIME. WILL CONTINUE TO MONITOR AND MEDICATE INDICATED.
--- NOTE | 2022-06-22 22:20 | NUR ---
PAIN MANAGEMENT DIFFICULTY MANAGING PTS DISCOMFORT SO FAR THIS SHIFT. PT INITIALLY GIVEN 10MG ROXANOL WITH LITTLE EFFECT. PT THEN GIVEN FENTANYL IV. SIGNS OF PAIN IMPROVED SLIGHTLY BUT WAS SHORT ACTING. PT THEN MEDICATED WITH FULL 20MG OF ROXANOL. PT IS STARTING TO RELAX MORE AT THIS TIME AND CPOT SCORE IS DOWN TO A 2 FROM A 5. WILL CONTINUE TO MONITOR CLOSELY AND MEDICATE NEEDED.
--- NOTE | 2022-06-23 00:30 | NUR ---
0000 ASSESSMENT PT MEDICATED AGAIN FOR PAIN AND AIR HUNGER. PAIN AND AIR HUNGER APPEAR TO BE IMPROVING WITH MEDICATIONS CURRENTLY BEING UTILIZED. NO ADDITIONAL NEEDS FOUND AT THIS TIME. WILL CONTINUE TO MONITOR.
--- NOTE | 2022-06-23 04:13 | NUR ---
0400 ASSESSMENT PT WITH INCREASED MOANING AND BECOMING RESTLESS AGAIN. PT REPOSITIONED AND MEDICATED WITH ADDITIONAL ROXANOL. PTS RESPIRATIONS ARE BECOMING LESS LABORED. ORAL CARE ATTEMPTED AGAIN BUT PT AGITATED WITH SWAB IN MOUTH. LIPS MOISTENED. FRANK WITH NO OUTPUT. NO ADDITIONAL NEEDS NOTED AT THIS TIME. WILL CONTINUE TO MONITOR.
--- NOTE | 2022-06-23 06:42 | NUR ---
SHIFT SUMMARY PT CONTINUES WITH COMFORT CARE. DIFFICULTY INITIALLY GETTING PAIN/AIR HUNGER REGULATED WITH MEDICATIONS BUT EVENTUALLY ABLE TO GET BETTER CONTROL. PT WITH NO URINE OUTPUT. RESPIRATIONS ARE SLOWING AND LESS LABORED. LUNG SOUNDS ARE COARSE THROUGHOUT. NO ADDITIONAL NEEDS AT THIS TIME. WILL PROVIDE REPORT TO ONCOMING RN.
--- NOTE | 2022-06-23 12:00 | NUR ---
Comfort care visit - approx 90 min spent at bedside with and case conferencing this am with pt's RN re: current status and medication recommendations. was restless and expressed discomfort at sitting at the bedside, "watching Luiza ". Pt appears to be actively dying with longer apnic periods as visit went on. She has moaning exhale with each breath but does not demonstrate nonverbal indicators of pain, anxiety restlessness at this time. Upper airway secretions noted and RN has addressed this per eMAR earlier this am with atropine and scopolomine patch administered. Lengthy time spent at bedside, listening, facilitating husb expression of feelings/life review. He spoke at length about Luiza, and family, their plans, ranch life, dreams. tearful at times and expressed appreciation of staff's care of Luiza and the conversation today. Pt's children had been in to visit and may come back again later today. Minesh verbalizes understanding that pt's prognosis is hours to days and discussed this with her Dr earlier this am. Plan for daily f/u if pt remains here over the weekend.
--- NOTE | 2022-06-23 12:49 | NUR ---
CARE NOTE PT APPEARED TO BE HAVING AIR HUNGER, SEE EMAR FOR MANAGEMENT. SPO2 AT 44%. CALL PLACED FROM THIS RN TO [place] SO HE COULD COME TO BEDSIDE. PT APPEARS MORE COMFORTABLE AT THIS TIME.
--- NOTE | 2022-06-23 13:16 | NUR ---
CARE NOTE TIME OF 1253. ENRIQUETA BOLES RN VERIFIED WITH THIS RN. AND SPIRITUAL CARE WERE AT BEDSIDE.
--- NOTE | 2022-06-23 13:42 | NUR ---
"Spiritual Care | EOL Was present when nurses call TOD. Moments later spouse arrived. Prayers are given for the Pt. and a time of life review with the Spouse. Established rapport, and discussed EOL logisitics. The Spouse verbalized he would like to be able to have Pts. daughter ([id number] but currently in town) have the opportunity to say goodbye to Pt. Spouse will let the PCU nurses know when he is leaving. Spouse has chosen [facility] as their home. Spouse verbalized gratitude for the spiritual care visit."
== END 2022-06-23 21:40 | DRG 441 ==
LOC: ER 10:10 → PCU 10:11
PROVIDERS: Nurse Practitioner Acute Care; Student in an Organized Health Care Education/Training Program; ADMIT Internal Medicine
DX: K76.7 Hepatorenal syndrome (principal); G93.41 Metabolic encephalopathy; I62.01 Nontraumatic acute subdural hemorrhage; I62.03 Nontraumatic chronic subdural hemorrhage; K72.00 Acute and subacute hepatic failure without coma; N17.9 Acute kidney failure, unspecified; K76.82 Hepatic encephalopathy; K70.30 Alcoholic cirrhosis of liver without ascites; Z66 Do not resuscitate; D63.8 Anemia in other chronic diseases classified elsewhere; F10.20 Alcohol dependence, uncomplicated; I10 Essential (primary) hypertension; M54.50 Low back pain, unspecified; G89.29 Other chronic pain; R74.8 Abnormal levels of other serum enzymes; D69.59 Other secondary thrombocytopenia; Z88.0 Allergy status to penicillin; Z79.899 Other long term (current) drug therapy; Z79.891 Long term (current) use of opiate analgesic; Z87.19 Personal history of other diseases of the digestive system; Z98.890 Other specified postprocedural states
CPT/HCPCS: 36415; 51703; 70450; 76705; 80048; 80053; 80076; 81001; 82140; 82550; 82803; 83690; 83735; 84100; 85025; 85610; 85730; 87086; 93005; 93010; 94640; 94664; 94760; 96374; 96376; 99285-25; A9270; C1751; C9113; G0378; G0480; J0696; J2354; J3010; J7030; J7050; P9047